=== PATIENT | female | born 2000 | race Caucasian/White ===

== ENCOUNTER 2024-05-19 11:02 | Outpatient (REF) | payer BC, SELFPAY ==
[2024-05-19 15:11] LABS: Monotest Negative (Negative)
[2024-05-19 15:35] LABS: Cortisol Random 10.9 ug/dL
[2024-05-19 15:49] LABS: Folate 2.9 ng/mL (> or = 4.0); Vitamin B12 369 pg/mL (200-900)
[2024-05-19 15:51] LABS: Ferritin 429 ng/mL (10-122); Thyroid Stimulating Hormone 1.92 uIU/mL (0.32-4.0)
[2024-05-19 16:02] LABS: Alanine Aminotransferase 37 U/L (0-31); Albumin Level 3.1 g/dL (3.5-5.0); Alkaline Phosphatase 119 U/L (39-117); Anion Gap 12 (12-20); Aspartate Amino Transferase 77 U/L (5-31); Bilirubin Direct 0.3 mg/dL (0.0-0.5); Bilirubin Total 0.6 mg/dL (0.0-1.0); Blood Urea Nitrogen 6 mg/dL (9-16); C Reactive Protein 0.31 mg/dL (< or = 0.50); Calcium 8.8 mg/dL (8.4-10.2); Carbon Dioxide 28 mmol/L (22-29); Chloride 104 mmol/L (96-108); Estimated Glomerular Filt Rate > 60; Gamma Glutamyl Transpeptidase 336 U/L (7-33); Glucose Random 109 mg/dL (60-115); Lactate Dehydrogenase 229 U/L (122-220); Lipase 147 U/L (8-78); Magnesium 1.8 mg/dL (1.6-2.6); Potassium 2.9 mmol/L (3.3-5.1); Sodium 141 mmol/L (135-145); Total Protein 6.5 g/dL (6.5-8.0)
[2024-05-20 08:22] LABS: HBsAGNum1 0.35 S/CO (0.00-0.99); Hepatitis A Antibody IgG REACTIVE (Nonreactive); Hepatitis B Surface Antigen Negative (Negative); ~Hepatitis A Antibody IgG 6.93 S/CO (0.00-0.99); ~Hepatitis B Surface Antibody NONREACTIVE (Nonreactive); ~Hepatitis C Antibody Nonreactive (Nonreactive)
[2024-05-20 12:33] LABS: Hepatitis A Antibody IgM 0.22 Index (0-0.79); ~Hepatitis A Antibody IgM Nonreactive (Nonreactive)
[2024-05-21 00:09] LABS: Alpha 1 Anti-trypsin 188 mg/dL (83-199)
[2024-05-21 03:59] LABS: Thyroglobulin Antibodies <1 IU/mL (< or = 1); Thyroid Peroxidase Antibodies <1 IU/mL (<9)
[2024-05-21 07:35] LABS: Hepatitis A Antibody IgM 0.15 Index (0-0.79); ~Hepatitis A Antibody IgM Nonreactive (Nonreactive)
[2024-05-23 14:09] LABS: Anti Nuclear Antibody Screen NEGATIVE (NEGATIVE)
[2024-05-24 22:53] LABS: Smooth Muscle Antibody <20 U (<20)
== END 2024-05-19 11:03 | disposition home or self-care (01) ==
LOC: HO.LAB 11:02
PROVIDERS: PCP Physician Assistant; Visit Provider Physician Assistant
DX: R63.4 Abnormal weight loss (principal); R11.2 Nausea with vomiting, unspecified; R10.9 Unspecified abdominal pain; R79.89 Other specified abnormal findings of blood chemistry; R42 Dizziness and giddiness; R51.9 Headache, unspecified; R94.5 Abnormal results of liver function studies; Z13.39 Encounter for screening examination for other mental health and behavioral disorders
CPT/HCPCS: 36415; 80048; 80076; 81256; 82103; 82533; 82607; 82728; 82746; 82977; 83615; 83690; 83735; 84146; 84443; 86015; 86038; 86140; 86308; 86376; 86706; 86708; 86709; 86800; 86803; 87340; 96127

== ENCOUNTER 2024-05-19 11:02 | Outpatient (AMB) | payer BC, SELFPAY ==
--- NOTE | 2024-05-19 08:19 | A.OFFVIS_ITS ---
Intake Visit Reasons: NPV, abdominal pain HPI HPI NPV, abdominal pain: Details: Patient is a 23-year-old female who presents today to establish care and with a list of complaints. Recently, over the summer, she had developed nausea, vomiting and decreased celi etite. She states that she is intermittently also getting diarrhea. She has lost about 20 lb in the last couple of months. She says that she tries to eat but nothing can stay down. She did go to an urgent care recently and was noted to have elevated LFTs and a mild anemia. She did bring in a copy of her labs. Her ferritin was 482, her AST 173, She states that she does not drink alcohol or use any illicit substances. She works full-time at a preschool. Coding
--- NOTE | 2024-05-19 11:15 | A.OFFPC_ITS ---
Vital Signs 05/19/24 11:21 Height 5 ft 0.08 in Weight 112 lb 8 oz BMI 21.9 BP 118/74 Blood Pressure Location Rt brachial Position Sitting Respiration 12 Pulse 95 Pulse Source Pulse Oximeter Temp 98.4 F Temp Source Oral Pulse Oximetry (%) 99 Oxygen Delivery Method Room Air Intake Visit Reasons: NPV, abdominal pain Intake Note: New patient visit. 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 Allergies No Known Allergies Allergy (Verified 05/19/24 11:15) Medication List - Last Reconciled 05/19/24 by Lisa Nichols PA-C loratadine (Claritin) 10 mg PO DAILY Tobacco use date assessed: 05/19/24 Dental Screening Dental Screen Date: 05/19/24 Did you have a dental visit in the last 12 months?: No Did you have a dental problem in the last 6 months where you did not have access to dental care?: No Was dental information given to patient?: Patient declined HPI NPV, abdominal pain HPI Details Pt is a 23 y/o female who presents today to establish care and with complaints of being concerned that she could have cancer. She is intermittently tearful today in the exam room because she is fearful there something very wrong with her. She is accompanied today by a friend who motivated her to make this appointment. Patient states 2 months ago she woke up with some nausea and vomiting. She states that it lasted a couple days and she thought she just had a stomach bug. She states that she felt just somewhat sick and like she was recovering during that time from some virus. She did not have any fevers or chills but she states that she had night sweats when it started, some headaches and felt dizzy and shaky. She states that for a week or 2 she felt fine and then the symptoms r eturned. She states that this has now been going on once a week or once every other week. She states that she will get these ?episodes? where she will shake, have nausea, vomiting, sweats and we will be unable to eat or drink much of anything. She states that the vomiting we will subside after a couple days but she will be weak afterwards. She does have upper abdominal pain constantly but it is exacerbated while vomiting. She states that over the last 2 months she has not been able to eat much because sometimes it can just trigger vomiting in general. She eats a little bit and then immediately feels full. She was about 135 lb in March and today is 112 lb. She eats very healthy as her boyfriend's mother is a senior scheduler and provides well-balanced meals. They are a gluten free family. She does not drink alcohol or use any illicit drugs. She does not smoke marijuana. 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 No diarrhea or change in stool. She has noticed some blood in the stool but states it is mostly with wiping. No mucus in the stool. In addition to the nausea and vomiting she has been experiencing frequent headaches that occur almost daily. It is on both sides of the head. She is getting dizzy with the nausea and vomiting and without it. If she moves around quickly sometimes she will feel a little lightheaded but if she tries to bounce around the preschool room she states that she will feel very off balance and nauseous. She can not move around quickly anymore without feeling sick. She has not feel like she is spinning. No vision changes, numbness, tingling or weakness. No bowel or bladder dysfunction. Over the last month she has noticed significant hair loss. She states that her hair is coming out in clumps and is very thin. She used to have the care but now can see her scalp throughout her head. She did notice a couple of weeks ago that she had a rash on her neck that was slightly raised, itchy and dry. It has since resolved. She did not put anything on it. She does endorse fatigue. Denies any lymphadenopathy. Normal menses. On OCPs. fam hx of father's side is unknown maternal great uncle had colon ca maternal grandfather had lung ca No known history of any autoimmune diseases. No recent travel. She did go to urgent care last week again had labs which showed an elevated ferritin of 457, elevated AST and ALT around 160. Mild anemia was noted. Negative celiac antibody testing. [facility] Social History Housing: House Patient Tobacco Use Status: Never used Tobacco e-Cigarette/Vaping Use: Never Used service: No Current occupational status: employed Current occupation: Parprofessional Current occupational exposures/hazards: No Cognitive needs: No Hearing needs: No Vision needs: Yes (glasses) Questionnaire Thrive Questionnaire Date Thrive assessed: 05/16/24 I am a: Patient What is your living situation today?: I have a steady place to live Within the past 12 months, did the food you bought not last and you didn't have the money to get more?: Never true Within the past 12 months, did you worry whether your food would run out before you got money to buy more?: Never true Do you have trouble paying for medicines?: No Do you have trouble getting transportation to medical appointments?: No Do you have trouble paying your heating and electricity bill?: No Do you have trouble taking care of your child, family member or friend?: No Do you have trouble with day-to-day activities such as bathing, preparing meals, shopping, managing finances, etc.?: No Are you currently unemployed and looking for a job?: No Are you interested in more education?: Yes Please select the resources that you would like help with: None THRIVE Score: 0 AUDIT C Alcohol Use Questionnaire (AUDIT-C) 1. How often do you have a drink containing alcohol?: Monthly or less 2. How many drinks containing alcohol do you have on a typical day when you are drinking?: 1 or 2 3. How often do you have six or more drinks on one occasion?: Less than monthly Total Score: 2 ROBERTA-7 AMB Questionnaire ROBERTA-7 Date ROBERTA - 7 assessed: 05/19/24 Feeling nervous, anxious, or on edge: 2 = More than half the days Not being able to stop or control worryin = Several days Worrying too much about different things: 2 = More than half the days Trouble relaxin = Several days Being so restless that it is hard to sit still: 1 = Several days Becoming easily annoyed or irritable: 0 = Not at all Feeling afraid as if something awful might happen: 1 = Several days Total ROBERTA-7 score (0-4 normal; 5-9 mild; 10-14 moderate; 15-21 severe): 8 Source: Developed by Drs. Evangelist Hilliard, Yumiko Hu, Renaldo Burgos and colleagues, with an educational isabela from [employer] ROBERTA-7 Assessment Billing ROBERTA-7 Assessment Tool: ROBERTA-7 Assessment 50205 Physical exam (Primary Care) Vital Signs: Last Vital Signs Temp 98.4 F 05/19/24 11:21 Pulse 95 05/19/24 11:21 Resp 12 05/19/24 11:21 BP 118/74 05/19/24 11:21 Pulse Ox 99 05/19/24 11:21 Oxygen Delivery Method Room Air 05/19/24 11:21 BMI result Body Mass Index 21.9 Tobacco/Smoking Status: Tobacco use Status Tobacco use date assessed 05/19/24 05/19/24 11:18 Patient Tobacco Use Status Never used Tobacco 05/19/24 11:18 e-Cigarette/Vaping Use Never Used 05/19/24 11:18 Thrive Assessment: Date of Thrive Assessment Date Thrive assessed 05/16/24 05/19/24 11:18 Const Orientation/consciousness: patient oriented x3 HENMT Ears: hearing grossly normal bilaterally and TM's normal bilaterally Neck Thyroid: Thyroid normal Lymphatic: no lymphadenopathy noted Resp Auscultation: clear to auscultation bilaterally Cardio Rate: regular rate Rhythm: regular rhythm Heart sounds: S1 normal heart sound present and S2 normal heart sound present GI Other: Tenderness to palpation throughout the upper abdomen and increased discomfort in the right upper quadrant. No rebound or guarding. No CVA tenderness. Inspection: Yes normal to inspection Palpation (GI): Soft to palpation Auscultation: normoactive bowel sounds Rectal Exam - Female: deferred Skin General skin exam: no rashes or lesions noted Neuro General: patient oriented x3, gait normal, no focal motor deficits and CN's II- XI intact bilaterally Cognition (Neuro): normal cognition Motor exam (neuro): 5/5 motor strength present throughout Sensory Exam: double simultaneous stimulation for sensation normal Coordination: [id number] test normal, tandem gait normal, does not sway with eyes open, Romberg test negative and rapid alternating movements of the distal upper extremity normal Coding Level of Care Code New Pt Level 5 (50990) Complex EM visit Add On G2211 Diagnoses Weight loss R63.4 Nausea & vomiting R11.2 Abdominal pain R10.9 Elevated LFTs R79.89 Dizziness R42 New onset headache R51.9 Additional Codes ROBERTA-7 Assessment Billing - ROBERTA-7 Assessment Tool: ROBERTA-7 Assessment 43918 ([id number]) Assessment & Plan Assessment & Plan (1) Weight loss: Code(s): R63.4 - Abnormal weight loss Category: Medical Plan: I spent more than 80 minutes in [id number] time today with patient discussing concerns, reviewing urgent care notes and labs. Labs ordered today. Stat CT abdomen and pelvis ordered. We will call patient with appointment time and date. MRI ordered given the headaches and dizziness. We discussed caloric rich foods such as ensure. Warning signs of abdominal pain that would require emergent medical treatment were discussed. Short term follow up. A prescription for lorazepam was given to use as needed for severe anxiety or claustrophobia during the MRI. We had reviewed the adverse effects of this drug including risk of sedation, dependence, and feeling altered. Advised patient to avoid drinking and/or driving while taking this medication. She will get a ride to her appointment. (2) Nausea & vomiting: Code(s): R11.2 - Nausea with vomiting, unspecified Category: Medical Plan: As above (3) Abdominal pain: Code(s): R10.9 - Unspecified abdominal pain Category: Medical Plan: This is not an acute abdomen despite there being some tenderness on exam. Reviewed warning signs of abdominal pain that would require emergent medical treatment. (4) Elevated LFTs: Code(s): R79.89 - Other specified abnormal findings of blood chemistry Category: Medical Plan: As above (5) Dizziness: Code(s): R42 - Dizziness and giddiness Category: Medical Plan: As above. (6) New onset headache: Code(s): R51.9 - Headache, unspecified Category: Medical Plan: Appears grossly neurologically intact today. Orders: Orders RODRI Reflex Titer and Pattern Today R10.9 - Unspecified abdominal pain, R11.2 - Nausea with vomiting, unspecified, R42 - Dizziness and giddiness, R51.9 - Headache, unspecified, R63.4 - Abnormal weight loss, R79.89 - Other specified abnormal findings of blood chemistry, R94.5 - Abnormal results of liver function studies Ferritin Today R10.9 - Unspecified abdominal pain, R11.2 - Nausea with vomiting, unspecified, R42 - Dizziness and giddiness, R51.9 - Headache, unspecified, R63.4 - Abnormal weight loss, R79.89 - Other specified abnormal findings of blood chemistry, R94.5 - Abnormal results of liver function studies Vitamin B12 and Folate Today R10.9 - Unspecified abdominal pain, R11.2 - Nausea with vomiting, unspecified, R42 - Dizziness and giddiness, R51.9 - Headache, unspecified, R63.4 - Abnormal weight loss, R79.89 - Other specified abnormal findings of blood chemistry, R94.5 - Abnormal results of liver function studies Magnesium Today R10.9 - Unspecified abdominal pain, R11.2 - Nausea with vomiting, unspecified, R42 - Dizziness and giddiness, R51.9 - Headache, unspecified, R63.4 - Abnormal weight loss, R79.89 - Other specified abnormal fin dings of blood chemistry, R94.5 - Abnormal results of liver function studies Thyroglobulin Antibodies Today R10.9 - Unspecified abdominal pain, R11.2 - Nausea with vomiting, unspecified, R42 - Dizziness and giddiness, R51.9 - Headache, unspecified, R63.4 - Abnormal weight loss, R79.89 - Other specified abnormal findings of blood chemistry, R94.5 - Abnormal results of liver function studies Thyroid Stimulating Hormone Today R10.9 - Unspecified abdominal pain, R11.2 - Nausea with vomiting, unspecified, R42 - Dizziness and giddiness, R51.9 - H eadache, unspecified, R63.4 - Abnormal weight loss, R79.89 - Other specified abnormal findings of blood chemistry, R94.5 - Abnormal results of liver function studies Cortisol Random Today R10.9 - Unspecified abdominal pain, R11.2 - Nausea with vomiting, unspecified, R42 - Dizziness and giddiness, R51.9 - Headache, unspecified, R63.4 - Abnormal weight loss, R79.89 - Other specified abnormal findings of blood chemistry, R94.5 - Abnormal results of liver function studies Prolactin Today R10.9 - Unspecified abdominal pain, R11.2 - Nausea with v omiting, unspecified, R42 - Dizziness and giddiness, R51.9 - Headache, unspecified, R63.4 - Abnormal weight loss, R79.89 - Other specified abnormal findings of blood chemistry, R94.5 - Abnormal results of liver function studies Smooth Muscle Antibody Today R10.9 - Unspecified abdominal pain, R11.2 - Nausea with vomiting, unspecified, R42 - Dizziness and giddiness, R51.9 - Headache, unspecified, R63.4 - Abnormal weight loss, R79.89 - Other specified abnormal findings of blood chemistry, R94.5 - Abnormal results of liver function studies Hepatitis B Surface Antigen Today R10.9 - Unspecified abdominal pain, R11.2 - Nausea with vomiting, unspecified, R42 - Dizziness and giddiness, R51.9 - Headache, unspecified, R63.4 - Abnormal weight loss, R79.89 - Other specified abnormal findings of blood chemistry, R94.5 - Abnormal results of liver function studies Hepatitis B Surface Antibody Today R10.9 - Unspecified abdominal pain, R11.2 - Nausea with vomiting, unspecified, R42 - Dizziness and giddiness, R51.9 - Headache, unspecified, R63.4 - Abnormal weight loss, R79.89 - Other specified abnormal findings of blood chemistry, R94.5 - Abnormal results of liver function studies Gamma Glutamyl Transpeptidase Today R10.9 - Unspecified abdominal pain, R11.2 - Nausea with vomiting, unspecified, R42 - Dizziness and giddiness, R51.9 - Headache, unspecified, R63.4 - Abnormal weight loss, R79.89 - Other specified abnormal findings of blood chemistry, R94.5 - Abnormal results of liver function studies Lactate Dehydrogenase Today R10.9 - Unspecified abdominal pain, R11.2 - Nausea with vomiting, unspecified, R42 - Dizziness and giddiness, R51.9 - Headache, unspecified, R63.4 - Abnormal weight loss, R79.89 - Other specified abnormal findings of blood chemistry, R94.5 - Abnormal results of liver function studies Basic Metabolic Panel Today R10.9 - Unspecified abdominal pain, R11.2 - Nausea with vomiting, unspecified, R42 - Dizziness and giddiness, R51.9 - Headache, unspecified, R63.4 - Abnormal weight loss, R79.89 - Other specified abnormal findings of blood chemistry, R94.5 - Abnormal results of liver function studies Liver Panel Today R10.9 - Unspecified abdominal pain, R11.2 - Nausea with vomiting, unspecified, R42 - Dizziness and giddiness, R51.9 - Headache, unspecified, R63.4 - Abnormal weight loss, R79.89 - Other specified abnormal findings of blood chemistry, R94.5 - Abnormal results of liver function studies DNA Analysis Hemochromatosis Today R10.9 - Unspecified abdominal pain, R11.2 - Nausea with vomiting, unspecified, R42 - Dizziness and giddiness, R51.9 - Headache, unspecified, R63.4 - Abnormal weight loss, R79.89 - Other specified abnormal findings of blood chemistry, R94.5 - Abnormal results of liver function studies H pylori Ag Stool Today R10.9 - Unspecified abdominal pain, R11.2 - Nausea with vomiting, unspecified, R42 - Dizziness and giddiness, R51.9 - Headache, unspecified, R63.4 - Abnormal weight loss, R79.89 - Other specified abnormal findings of blood chemistry, R94.5 - Abnormal results of liver function studies Thyroid Peroxidase Antibodies Today R10.9 - Unspecified abdominal pain, R11.2 - Nausea with vomiting, unspecified, R42 - Dizziness and giddiness, R51.9 - Headache, unspecified, R63.4 - Abnormal weight loss, R79.89 - Other specified abnormal findings of blood chemistry, R94.5 - Abnormal results of liver function studies C Reactive Protein Today R10.9 - Unspecified abdominal pain, R11.2 - Nausea with vomiting, unspecified, R42 - Dizziness and giddiness, R51.9 - Headache, unspecified, R63.4 - Abnormal weight loss, R79.89 - Other specified abnormal findings of blood chemistry, R94.5 - Abnormal results of liver function studies Lipase Today R10.9 - Unspecified abdominal pain, R11.2 - Nausea with vomiting, unspecified, R42 - Dizziness and giddiness, R51.9 - Headache, unspecified, R63.4 - Abnormal weight loss, R79.89 - Other specified abnormal findings of blood chemistry, R94.5 - Abnormal results of liver function studies Hepatitis C Antibody Today R10.9 - Unspecified abdominal pain, R11.2 - Nausea with vomiting, unspecified, R42 - Dizziness and giddiness, R51.9 - Headache, unspecified, R63.4 - Abnormal weight loss, R79.89 - Other specified abnormal findings of blood chemistry, R94.5 - Abnormal results of liver function studies Hepatitis A IgG Today R10.9 - Unspecified abdominal pain, R11.2 - Nausea with vomiting, unspecified, R42 - Dizziness and giddiness, R51.9 - Headache, unspecified, R63.4 - Abnormal weight loss, R79.89 - Other specified abnormal findings of blood chemistry, R94.5 - Abnormal results of liver function studies Monotest Today R10.9 - Unspecified abdominal pain, R11.2 - Nausea with vomiting, unspecified, R42 - Dizziness and giddiness, R51.9 - Headache, unspecified, R63.4 - Abnormal weight loss, R79.89 - Other specified abnormal findings of blood chemistry, R94.5 - Abnormal results of liver function studies Alpha 1 Anti-trypsin Today R10.9 - Unspecified abdominal pain, R11.2 - Nausea with vomiting, unspecified, R42 - Dizziness and giddiness, R51.9 - Headache, unspecified, R63.4 - Abnormal weight loss, R79.89 - Other specified abnormal findings of blood chemistry, R94.5 - Abnormal results of liver function studies MR head/brain wo con Today R42 - Dizziness and giddiness, R51.9 - Headache, unspecified, R63.4 - Abnormal weight loss CT abdomen pelvis wo/w IV con Today R10.9 - Unspecified abdominal pain, R11.2 - Nausea with vomiting, unspecified, R63.4 - Abnormal weight loss, R79.89 - Other specified abnormal findings of blood chemistry Referrals Gastroenterology Referral R10.9 - Unspecified abdominal pain, R11.2 - Nausea with vomiting, unspecified, R63.4 - Abnormal weight loss, R79.89 - Other specified abnormal findings of blood chemistry Medications: New lorazepam 0.5 mg PO DAILY 20 days PRN 20 tabs 0RF anxiety lorazepam 0.5 mg PO DAILY 20 days PRN 30 tabs 0RF anxiety lorazepam 0.5 mg PO DAILY 30 days PRN 30 tabs 0RF anxiety
[2024-05-19 11:21] VITALS: BP 118/74; PULSE 95; RESP 12; TEMP 36.9; O2SAT 99; BMI 21.9
== END 2024-05-19 12:41 | disposition home or self-care (01) ==
LOC: HO.HMCFM 11:02
PROVIDERS: PCP Physician Assistant; Visit Provider Physician Assistant
DX: R63.4 Abnormal weight loss (principal); R11.2 Nausea with vomiting, unspecified; R10.9 Unspecified abdominal pain; R42 Dizziness and giddiness; R51.9 Headache, unspecified

== ENCOUNTER 2024-05-26 15:48 | Outpatient (REF) | payer BC, SELFPAY ==
[2024-05-26 18:20] LABS: MANUAL DIFF FLAG NO
[2024-05-26 18:21] LABS: Basophils Absolute Auto 0.1 X10*3/uL (0.0-0.2); Basophils Percent Auto 1.7 % (0-2); Eosinophils Absolute Auto 0.1 X10*3/uL (0.0-0.4); Eosinophils Percent Auto 1.7 % (0-4); Hematocrit 33.3 % (37.0-47.0); Hemoglobin 10.8 g/dl (12.0-16.0); Imm Gran Abs Auto 0.01 X10*3/uL (0.00-0.03); Imm Gran Pct Auto 0.2 % (0.0-0.4); Lymphocytes Absolute Auto 1.4 X10*3/uL (1.2-4.9); Lymphocytes Percent Auto 33.3 % (20-40); Mean Corpuscular HGB Conc 32.4 g/dl (31.0-35.0); Mean Corpuscular Hemoglobin 30.9 pg (27.0-33.0); Mean Corpuscular Volume 95.4 fL (80.0-98.0); Monocytes Absolute Auto 0.4 X10*3/uL (0.1-1.2); Monocytes Percent Auto 8.9 % (2-11); Neutrophils Absolute Auto 2.2 x10*3/uL (2.0-8.3); Neutrophils Percent Auto 54.2 % (45-73); Platelet Count 258 X10*3/uL (160-400); Red Blood Count 3.49 X10*6/uL (4.20-5.50); Red Cell Distribution Width 15.4 % (11.0-16.0); White Blood Count 4.1 X10*3/uL (4.8-10.8)
[2024-05-26 18:33] LABS: Alanine Aminotransferase 43 U/L (0-31); Albumin Level 3.1 g/dL (3.5-5.0); Alkaline Phosphatase 113 U/L (39-117); Anion Gap 12 (12-20); Aspartate Amino Transferase 73 U/L (5-31); Bilirubin Direct 0.6 mg/dL (0.0-0.5); Bilirubin Total 1.3 mg/dL (0.0-1.0); Blood Urea Nitrogen 6 mg/dL (9-16); Calcium 8.9 mg/dL (8.4-10.2); Carbon Dioxide 22 mmol/L (22-29); Chloride 104 mmol/L (96-108); Estimated Glomerular Filt Rate > 60; Glucose Random 97 mg/dL (60-115); Lipase 154 U/L (8-78); Potassium 4.4 mmol/L (3.3-5.1); Sodium 134 mmol/L (135-145); Total Protein 6.6 g/dL (6.5-8.0)
[2024-06-01 09:10] LABS: Phosphatidylethanol 16:0-18:1 >400 (H); Phosphatidylethanol 16:0-18:2 342 (H)
== END 2024-05-26 15:49 | disposition home or self-care (01) ==
LOC: HO.WFDLDS 15:48
PROVIDERS: Visit Provider Physician Assistant
DX: R79.89 Other specified abnormal findings of blood chemistry (principal); R94.5 Abnormal results of liver function studies; R63.4 Abnormal weight loss; R11.2 Nausea with vomiting, unspecified; R10.9 Unspecified abdominal pain; R42 Dizziness and giddiness; R51.9 Headache, unspecified
CPT/HCPCS: 80048; 80076; 80321; 83690; 85025; 87338

== ENCOUNTER 2024-06-16 13:57 | Outpatient (AMB) | payer BC, SELFPAY ==
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
[2024-06-16 14:12] VITALS: BP 122/74; PULSE 112; O2SAT 95; BMI 21.8
== END 2024-06-16 14:56 | disposition home or self-care (01) ==
LOC: HO.HMCFM 13:59
PROVIDERS: Visit Provider Physician Assistant
DX: R11.2 Nausea with vomiting, unspecified (principal); R79.89 Other specified abnormal findings of blood chemistry; R74.8 Abnormal levels of other serum enzymes; E87.6 Hypokalemia; F41.8 Other specified anxiety disorders

== ENCOUNTER → 2024-06-16 13:57 | Outpatient (BNVA) | payer BC, SELFPAY | PROVIDERS: Visit Provider Physician Assistant ==

== ENCOUNTER 2024-06-16 15:02 | Outpatient (REF) | payer BC, SELFPAY ==
[2024-06-16 17:44] LABS: MANUAL DIFF FLAG NO
[2024-06-16 17:51] LABS: Basophils Absolute Auto 0.1 X10*3/uL (0.0-0.2); Eosinophils Absolute Auto 0.1 X10*3/uL (0.0-0.4); Eosinophils Percent Auto 1.5 % (0-4); Hematocrit 34.7 % (37.0-47.0); Imm Gran Abs Auto 0.01 X10*3/uL (0.00-0.03); Imm Gran Pct Auto 0.2 % (0.0-0.4); Lymphocytes Absolute Auto 1.6 X10*3/uL (1.2-4.9); Lymphocytes Percent Auto 33.5 % (20-40); Mean Corpuscular HGB Conc 31.7 g/dl (31.0-35.0); Mean Corpuscular Hemoglobin 29.3 pg (27.0-33.0); Mean Corpuscular Volume 92.3 fL (80.0-98.0); Mean Platelet Volume 11.2 fL (9.4-12.3); Monocytes Absolute Auto 0.4 X10*3/uL (0.1-1.2); Monocytes Percent Auto 7.5 % (2-11); Neutrophils Absolute Auto 2.7 x10*3/uL (2.0-8.3); Neutrophils Percent Auto 56.3 % (45-73); Platelet Count 231 X10*3/uL (160-400); Red Blood Count 3.76 X10*6/uL (4.20-5.50); Red Cell Distribution Width 14.3 % (11.0-16.0); White Blood Count 4.8 X10*3/uL (4.8-10.8)
[2024-06-16 18:05] LABS: Alanine Aminotransferase 55 U/L (0-31); Albumin Level 3.3 g/dL (3.5-5.0); Alkaline Phosphatase 103 U/L (39-117); Anion Gap 9 (12-20); Aspartate Amino Transferase 49 U/L (5-31); Bilirubin Direct 0.2 mg/dL (0.0-0.5); Bilirubin Total 0.4 mg/dL (0.0-1.0); Blood Urea Nitrogen 5 mg/dL (9-16); Calcium 8.3 mg/dL (8.4-10.2); Carbon Dioxide 26 mmol/L (22-29); Chloride 110 mmol/L (96-108); Estimated Glomerular Filt Rate > 60; Glucose Random 101 mg/dL (60-115); Lipase 105 U/L (8-78); Potassium 3.6 mmol/L (3.3-5.1); Sodium 141 mmol/L (135-145); Total Protein 6.8 g/dL (6.5-8.0)
[2024-06-16 18:25] LABS: Gamma Glutamyl Transpeptidase 358 U/L (7-33)
== END 2024-06-16 15:03 | disposition home or self-care (01) ==
LOC: HO.WFDLDS 15:02
PROVIDERS: Visit Provider Physician Assistant
DX: R63.4 Abnormal weight loss (principal); R79.89 Other specified abnormal findings of blood chemistry; R74.8 Abnormal levels of other serum enzymes; R11.2 Nausea with vomiting, unspecified; E87.6 Hypokalemia
CPT/HCPCS: 36415; 80048; 80076; 82977; 83690; 85025

== ENCOUNTER 2024-06-17 18:08 | Outpatient (REF) | payer BC, SELFPAY ==
--- NOTE | ~2024-06-17 | MR_ITS ---
EXAMINATION: MR BRAIN WITHOUT CONTRAST CLINICAL INFORMATION: Headache. COMPARISON: None available. TECHNIQUE: MRI of the brain was obtained using routine sequences without contrast. FINDINGS: No focal restricted diffusion is demonstrated to suggest acute or subacute cerebral ischemia. No evidence of acute or chronic hemorrhagic products on heme-sensitive imaging. Normal parenchymal signal characteristics. The ventricles are normal in morphology and size. No abnormal mass effect. No midline shift. Normal appearance of the pituitary gland. The suprasellar cistern remains widely patent. The cerebellar tonsils are mildly low lying, positioned 0.3 cm below the foramen magnum. The CSF space of the foramen magnum is maintained. Normal arterial and venous vascular flow voids are present. Normal, homogeneous marrow signal. Mild mucosal thickening of the paranasal sinuses. No signal abnormalities within the mastoids. Normal appearance of the internal auditory canals. No demonstrated mass lesions along the cerebellopontine angles. Maintained normal T2 signal within the labyrinthine structures. MR/MR head/brain wo con IMPRESSION: 1. No acute intracranial abnormalities. 2. Mild cerebellar tonsillar ectopia. 3. No additional MRI abnormalities to explain the patient's symptoms. Electronically signed by: Girish Velázquez DO 07/20/2024 06:23 AM [facility]
== END 2024-06-17 18:09 | disposition home or self-care (01) ==
LOC: HO.MRI 18:08
PROVIDERS: PCP Physician Assistant; Visit Provider Physician Assistant
DX: R51.9 Headache, unspecified (principal); R42 Dizziness and giddiness; R63.4 Abnormal weight loss
CPT/HCPCS: 70551

== ENCOUNTER 2024-07-20 12:44 | Emergency (ER) | payer BC, SELFPAY ==
[2024-07-20 13:42] VITALS: BP 134/81; PULSE 108; RESP 18; TEMP 36.7; O2SAT 99; BMI 21.1
--- NOTE | 2024-07-20 15:19 | ED.GENADULT ---
HPI - General Adult General Chief complaint: ETOH/Substance Use Stated complaint: alcohol abuse Time Seen by Provider: 07/20/24 15:09 Source: patient and old records reviewed Mode of arrival: ambulatory Limitations: no limitations History of Present Illness ED Provider: Ludin VALDIVIA narrative: Patient is a 23-year-old female presenting to the emergency department requesting assistance with her alcohol use. Reports she has not drank any alcohol for the past two months and last night drank one shot. She reports feeling depressed but denies any suicidal ideation, homicidal ideation, auditory or visual hallucinations. Denies history of withdrawal seizures. MD complaint: substance use Onset (ago): hour(s) Associated symptoms: denies other symptoms Treatments prior to arrival: none Related Data Home Medications ?Medication ?Instructions ?Recorded ?Confirmed loratadine 10 mg tablet (Claritin) 10 mg PO DAILY 05/19/24 06/16/24 Previous Rx's ?Medication ?Instructions ?Recorded folic acid 1 mg tablet 1 mg PO DAILY #90 tabs 05/19/24 lorazepam 0.5 mg tablet 0.5 mg PO DAILY PRN anxiety 30 05/19/24 days #30 tabs potassium chloride 10 mEq 10 meq PO BID #60 tabs 05/19/24 tablet,extended release(part/cryst) (Klor-Con M) omeprazole 20 mg capsule,delayed 20 mg PO BID #60 caps 05/25/24 release escitalopram oxalate 10 mg tablet 10 mg PO DAILY #90 tabs 06/17/24 (Lexapro) Allergies Allergy/AdvReac Type Severity Reaction Status Date / Time No Known Allergies Allergy Verified 07/20/24 13:46 Review of Systems Review of Systems: As per HPI Yes all other systems are reviewed and are negative Constitutional: Constitutional: Reports as per HPI [facility] Social History Social History Housing: House Patient Tobacco Use Status: Never used Tobacco e-Cigarette/Vaping Use: Never Used Advance Directives: No Advance Directives Information Provided: Yes service: No Current occupational status: employed Current occupation: [employer] Current occupational exposures/hazards: No Cognitive needs: No Hearing needs: No Vision needs: Yes (glasses) Physical Exam ED Vital Signs: Vital Signs - 24 hr 07/20/24 13:42 Temperature 98.1 F Pulse Rate 108 H Respiratory Rate 18 Blood Pressure 134/81 Pulse Oximetry 99 Oxygen Delivery Method Room Air BMI result Body Mass Index 21.1 Vital signs have been reviewed and appear to be correct. Blood pressure normal. Heart rate mildly tachycardic. Respiratory rate normal. Temperature normal. Oxygen saturation normal. Const General: cooperative, healthy appearing and no acute distress Orientation/consciousness: oriented to person, oriented to place, oriented to time and patient oriented x3 Limitations: no limitations HENMT Head: Yes normocephalic and Yes atraumatic Ears: external ears normal General nose exam: Normal external nose present Face and sinus: Yes face symmetric Mouth: oropharynx normal and moist mucous membranes Throat: Yes uvula midline Eyes Pupils: Equal, round and reactive pupils present Neck Neck: Yes normal visual inspection and Yes supple Resp Effort & Inspection: normal respiratory effort and able to speak in complete sentences Auscultation: clear to auscultation bilaterally Cardio Rate: regular rate Rhythm: regular rhythm Heart sounds: S1 normal heart sound present and S2 normal heart sound present GI Palpation (GI): Soft to palpation and nontender Auscultation: normoactive bowel sounds General: Yes no CVA tenderness Back/Spine/Pelvis Back: no CVA tenderness Skin General skin exam: elasticity normal and turgor normal Neuro General: oriented to person, oriented to place, oriented to time, patient oriented x3, gait normal, tone normal, moves all extremities, no focal motor deficits and CN's II-XI intact bilaterally Cranial nerves: Yes Equal, round and reactive pupils present Cognition (Neuro): normal cognition Motor exam (neuro): no tremor noted and Motor fasciculations not present Extrem General: Yes full ROM, Yes no pedal edema and Yes no calf tenderness Psych Mental Status: mental status grossly normal Affect: normal affect Thought process: Normal thought process present Medical Decision Making Medical Decision Making MDM Narrative: Patient is a 23-year-old female presenting to the emergency department requesting assistance with her alcohol use. On exam patient is awake, A+Ox3, VS WNL, afebrile, normal neurological exam without focal deficits, physical exam findings as above. Given reported symptoms and physical exam findings, initial differential includes alcohol or drug intoxication, alcohol dependence, electrolyte abnormalities. Labs notable for ethanol of 350, no significant electrolyte abnormalities, elevated AST. Patient spoke with MITCHELL Pink from addiction medicine and established a plan for patient to present as a walk-in to the [facility] in the morning as patient is not interested in inpatient detox. Patient presented to the ED with boyfriend, Mich, who she lives with. She is requesting discharge home with Mich, states he will be driving and she will be staying with him overnight until she presents to the [facility] in the morning. Case discussed with attending MD, Dr. German, who feels comfortable with patient being discharged to the care of Mich. Return precautions discussed. Patient verbalized understanding of and agreement with plan. Differential Diagnosis Differential Diagnoses: The differential diagnosis associated with the presentation includes As per [facility] Admission/Observation Consideration of admission/observation: Escalation of care including admission/observation considered Consult Healthcare Provider Management of the patient was discussed with: Community Chest Officer (MITCHELL Pink addiction medicine) Lab Data [facility] Lab Attestation statement: I reviewed the patient's lab results. As per [facility] 07/20/24 15:23 07/20/24 15:23 Labs: Lab Results 07/20/24 Range/Units 15:23 WBC 5.2 (4.8-10.8) X10*3/uL RBC 4.00 L (4.20-5.50) X10*6/uL Hgb 11.3 L (12.0-16.0) g/dl Hct 34.4 L (37.0-47.0) % MCV 86.0 (80.0-98.0) fL MCH 28.3 (27.0-33.0) pg MCHC 32.8 (31.0-35.0) g/dl RDW 15.2 (11.0-16.0) % Plt Count 201 (160-400) X10*3/uL MPV 9.7 (9.4-12.3) fL Immature Gran % (Auto) 0.2 (0.0-0.4) % Neut % (Auto) 44.5 L (45-73) % Lymph % (Auto) 46.2 H (20-40) % Nobles % (Auto) 7.9 (2-11) % Eos % (Auto) 0.4 (0-4) % Baso % (Auto) 0.8 (0-2) % Lymph # (Auto) 2.4 (1.2-4.9) X10*3/uL Nobles # (Auto) 0.4 (0.1-1.2) X10*3/uL Eos # (Auto) 0.0 (0.0-0.4) X10*3/uL Baso # (Auto) 0.0 (0.0-0.2) X10*3/uL Abs Immat Gran (auto) 0.01 (0.00-0.03) X10*3/uL Absolute Neuts (auto) 2.3 (2.0-8.3) x10*3/uL Absolute Nucleated RBC 0.000 (0.0-0.012) X10*3/uL Nucleated RBC % (auto) 0.0 (0.0-0.2) /100WBC Sodium 146 H (135-145) mmol/L Potassium 3.6 (3.3-5.1) mmol/L Chloride 109 H (96-108) mmol/L Carbon Dioxide 26 (22-29) mmol/L Anion Gap 15 (12-20) BUN 7 L (9-16) mg/dL Creatinine 0.75 (0.5-1.4) mg/dL Estim Creat Clear Calc 87.2 Estimated GFR > 60 Random Glucose 116 H (60-115) mg/dL Calcium 8.5 (8.4-10.2) mg/dL Magnesium 2.1 (1.6-2.6) mg/dL Total Bilirubin 0.5 (0.0-1.0) mg/dL AST 66 H (5-31) U/L ALT 21 (0-31) U/L Alkaline Phosphatase 73 (39-117) U/L Total Protein 6.9 (6.5-8.0) g/dL Albumin 3.5 (3.5-5.0) g/dL Lipase 27 (8-78) U/L Beta HCG, Quant < 2 mIU/mL Salicylates < 5.0 L (15-30) mg/dL Acetaminophen < 3 (<30) mcg/mL Ethyl Alcohol 350 H* mg/dL External Record Review External record reviewed: Inpatient record, Office record and Outpatient record Discharge Plan Discharge Clinical Impression: Alcoholic intoxication, Alcohol use disorder Patient Disposition: Home, Self-Care Instructions: Abuse of Alcohol (DC), Alcohol Intoxication (ED), Alcohol Use Disorder (ED), Alcohol Withdrawal (DC) Additional Instructions: You presented to the emergency department today seeking assistance with detox from alcohol and met with one of the addiction medicine nurses. The plan is for you to present to the [facility] in the morning. Call the [facility] office with any questions. Return to the emergency department sooner if you experience seizures, confusion, have thoughts of hurting yourself or anyone else, or any other new or concerning symptoms. [address], [address] [place], [place] [phone] Prescriptions: No Action potassium chloride [Klor-Con M10] 10 mEq tablet,ER particles/crystals 10 meq PO BID Qty: 60 2RF folic acid 1 mg tablet 1 mg PO DAILY Qty: 90 0RF omeprazole 20 mg capsule,delayed release(DR/EC) 20 mg PO BID Qty: 60 1RF escitalopram oxalate [Lexapro] 10 mg tablet 10 mg PO DAILY Qty: 90 1RF loratadine [Claritin] 10 mg tablet 10 mg PO DAILY lorazepam 0.5 mg tablet 0.5 mg PO DAILY PRN (Reason: anxiety) 30 Days Qty: 30 0RF Referrals: Selina Whyte CNP [Nurse Practitioner] - Print Language: Serbian
[2024-07-20 15:27] LABS: MANUAL DIFF FLAG NO
[2024-07-20 15:29] LABS: Basophils Percent Auto 0.8 % (0-2); Eosinophils Percent Auto 0.4 % (0-4); Hematocrit 34.4 % (37.0-47.0); Hemoglobin 11.3 g/dl (12.0-16.0); Imm Gran Abs Auto 0.01 X10*3/uL (0.00-0.03); Imm Gran Pct Auto 0.2 % (0.0-0.4); Lymphocytes Absolute Auto 2.4 X10*3/uL (1.2-4.9); Lymphocytes Percent Auto 46.2 % (20-40); Mean Corpuscular HGB Conc 32.8 g/dl (31.0-35.0); Mean Corpuscular Hemoglobin 28.3 pg (27.0-33.0); Mean Platelet Volume 9.7 fL (9.4-12.3); Monocytes Absolute Auto 0.4 X10*3/uL (0.1-1.2); Monocytes Percent Auto 7.9 % (2-11); Neutrophils Absolute Auto 2.3 x10*3/uL (2.0-8.3); Neutrophils Percent Auto 44.5 % (45-73); Platelet Count 201 X10*3/uL (160-400); Red Cell Distribution Width 15.2 % (11.0-16.0); White Blood Count 5.2 X10*3/uL (4.8-10.8)
[2024-07-20 15:52] LABS: Albumin Level 3.5 g/dL (3.5-5.0); Anion Gap 15 (12-20); Aspartate Amino Transferase 66 U/L (5-31); Bilirubin Total 0.5 mg/dL (0.0-1.0); Blood Urea Nitrogen 7 mg/dL (9-16); Calcium 8.5 mg/dL (8.4-10.2); Carbon Dioxide 26 mmol/L (22-29); Chloride 109 mmol/L (96-108); Creatinine Clr Calc Pharmacy 87.2; Estimated Glomerular Filt Rate > 60; Ethanol 350 mg/dL; Glucose Random 116 mg/dL (60-115); HCG Quantitative < 2 mIU/mL; Lipase 27 U/L (8-78); Magnesium 2.1 mg/dL (1.6-2.6); Potassium 3.6 mmol/L (3.3-5.1); Sodium 146 mmol/L (135-145); Total Protein 6.9 g/dL (6.5-8.0)
[2024-07-20 16:31] LABS: Acetaminophen LAB < 3 mcg/mL (<30); Salicylate < 5.0 mg/dL (15-30)
[2024-07-20 16:43] LABS: Alanine Aminotransferase 21 U/L (0-31); Alkaline Phosphatase 73 U/L (39-117)
[2024-07-20 17:13] VITALS: BP 134/81; PULSE 108; RESP 18; TEMP 36.7; O2SAT 99
--- NOTE | 2024-07-21 08:05 | MHC.RECOVRN ---
Addendum entered by Apryl Patricio 07/21/24 08:10: Edited: This was a late entry, had met with pt on 07/20/24 at 1500. Original Note: Met with pt and boyfriend, Mich, in Results Pending to discuss alcohol use and provide resources/support. Discussed many resources and supports including inpatient and outpatient treatment options, NATHALY, and recovery coaching. Pt is interested in Vivitrol. Pt came to the ED today because in the morning of 07/20 she was at work and asked to leave due to smelling of alcohol. While meeting with t/w, pt received a message from work that she is not to come in until investigation has been completed. Pt is help seeking but guarded with information. Pt plans to review and discuss resources and present to the [facility] as a walk in to further discuss plan and answer any questions pt has after thinking about options. Pt and boyfriend deny questions or concerns at this time.
== END 2024-07-20 17:13 | disposition home or self-care (01) ==
PROVIDERS: Emergency Provider Internal Medicine; PCP Physician Assistant
DX: F10.120 Alcohol abuse with intoxication, uncomplicated (principal); Y90.8 Blood alcohol level of 240 mg/100 ml or more; R00.0 Tachycardia, unspecified; F41.8 Other specified anxiety disorders; Z79.899 Other long term (current) drug therapy
CPT/HCPCS: 36415; 80053; 80143; 80179; 80307; 83690; 83735; 84702; 85025; 99282; 99283; S9485

== ENCOUNTER → 2024-07-21 10:14 | Outpatient (BNVA) | payer BC, SELFPAY | PROVIDERS: PCP Physician Assistant | DX: F10.10 Alcohol abuse, uncomplicated (principal) ==